=== PATIENT | female | born 1960 | race Caucasian/White ===

== ENCOUNTER → 2025-02-25 | Outpatient (CLI) | payer OTHER, SELFPAY ==
[2025-02-25 10:48] LABS: Cardiac Risk Estimate 5.1 RATIO (3.7-5.6); Cholesterol 197 mg/dL (132-200); HDL Cholesterol 39 mg/dL (40-60); LDL Cholesterol,Calculated 138 mg/dL (0-130); Triglycerides 100 mg/dL (30-150)
== END | disposition home or self-care (01) ==
LOC: COPL 09:35
PROVIDERS: PCP Family Medicine; Referring Provider Family Medicine; Visit Provider Family Medicine
DX: E78.2 Mixed hyperlipidemia (principal)
CPT/HCPCS: 36415; 80061

== ENCOUNTER 2025-06-12 10:00 | Day surgery (SDC) | payer OTHER, SELFPAY ==
[2025-06-11 12:19] VITALS: BMI 28.0
[2025-06-12] VITALS (11 sets, daily range): BP systolic 102–142; BP diastolic 56–93; PULSE 63–89; RESP 11–18; TEMP 36.3–36.8; O2SAT 96–100; BMI 28.0
[2025-06-12] MEDS: SODIUM CHLORIDE 0.9% 500 ML 500 ML 20 ML IV (11:40)
[2025-06-12] MEDS: ONDANSETRON INJ 2 MG/ML INJ 2 ML 4 MG IVP (11:40)
[2025-06-12] MEDS: MIDAZOLAM INJ 1 MG/ML VIAL 2 ML (ASD USE ONLY) 2 MG IVP (11:47)
[2025-06-12] MEDS: fentaNYL CIT INJ 50 mCg/ML AMP 2ML (ASD USE ONLY) IVP (11:47)
== END 2025-06-12 12:45 | disposition home or self-care (01) ==
PROVIDERS: PCP Family Medicine; Referring Provider Specialist; Visit Provider Specialist
PROC: 0DBE8ZX Excision of Large Intestine, Via Natural or Artificial Opening Endoscopic, Diagnostic (ICD-10-PCS; CPT 45380; principal; 2025-06-12 10:45)
DX: Z12.11 Encounter for screening for malignant neoplasm of colon (principal); K64.1 Second degree hemorrhoids; K57.30 Diverticulosis of large intestine without perforation or abscess without bleeding
CPT/HCPCS: G0121; A4649; J1200; J2250; J2405; J3010; J7999